=== PATIENT | female | born 1935 | race Caucasian/White ===

== ENCOUNTER → 2017-01-07 | Outpatient (CLI) | payer MEDICARE, BC ==
[2014-06-08 21:23] VITALS: BP 172/94
[~2017-01-07] MED LIST: ANTI ITCH TP; ASPERCREME10% TP; CIPRO 250MG TA250 MG PO; DIFLUCAN100 MG PO; MORPHINE SULFAT15 M2 PO; NORCO 325 MG-51 TA1 PO; ONDANSETRON8 M1 PO
[2017-01-07 08:37] LABS: BASO # 0.1 (0.02-0.10); EOS # 0.2 (0.04-0.40); EOS % 3.9 % (1.0-5.0); HEMATOCRIT 34.5 % (37.0-47.0); HEMOGLOBIN 11.5 g/dL (12.5-16.0); LYMPH# 1.7 (1.50-4.00); MEAN CELL VOLUME 89 fl (78-100); MEAN CORPUSCULAR HEMOGLOBIN 30 pg (27-31); MEAN CORPUSCULAR HGB CONC 33 g/dL (33-37); MEAN PLATELET VOLUME 9.7 fl (7.4-10.4); MONO # 0.7 (0.20-0.80); NEU # 3.2 (1.40-6.50); PLATELET COUNT 285 K/mm3 (130-400); RED BLOOD COUNT 3.86 M/mm3 (4.10-5.30); RED CELL DISTRIBUTION WIDTH 14.2 % (11.5-14.5); WHITE BLOOD COUNT 5.9 K/mm3 (4.8-10.8)
[2017-01-07 08:45] LABS: ALBUMIN 4.1 g/dL (3.5-5.0); BUN/CREATININE RATIO 25.8 (6.0-26.0); CALCIUM 9.8 mg/dL (8.4-10.2); POTASSIUM 4.2 mmol/L (3.6-5.0); TOTAL BILIRUBIN 0.5 mg/dL (0.2-1.3); TOTAL PROTEIN 7.3 g/dL (6.3-8.2)
== END ==
LOC: LAB 08:09
PROVIDERS: Nurse Practitioner Family
DX: I10 Essential (primary) hypertension (principal); R01.1 Cardiac murmur, unspecified; I35.1 Nonrheumatic aortic (valve) insufficiency; E78.2 Mixed hyperlipidemia; M81.0 Age-related osteoporosis without current pathological fracture; G30.9 Alzheimer's disease, unspecified

== ENCOUNTER → 2018-06-24 | Outpatient (CLI) | payer MEDICARE, BC ==
[2014-06-08 21:23] VITALS: BP 172/94
[2018-06-24 14:48] LABS: EOS # 0.1 (0.04-0.40); EOS % 0.9 % (1.0-5.0); LYMPH# 1.4 (1.50-4.00); MEAN CELL VOLUME 89 fl (78-100); MEAN CORPUSCULAR HEMOGLOBIN 29 pg (27-31); MEAN CORPUSCULAR HGB CONC 32 g/dL (33-37); MEAN PLATELET VOLUME 10.2 fl (7.4-10.4); MONO # 0.7 (0.20-0.80); NEU # 4.3 (1.40-6.50); PLATELET COUNT 318 K/mm3 (130-400); RED BLOOD COUNT 4.15 M/mm3 (4.10-5.30); RED CELL DISTRIBUTION WIDTH 14.5 % (11.5-14.5); WHITE BLOOD COUNT 6.5 K/mm3 (4.8-10.8)
[2018-06-24 14:54] LABS: ALBUMIN 4.6 g/dL (3.5-5.0); CALCIUM 9.5 mg/dL (8.4-10.2); POTASSIUM 4.1 mmol/L (3.6-5.0); TOTAL BILIRUBIN 0.4 mg/dL (0.2-1.3); TOTAL PROTEIN 7.9 g/dL (6.3-8.2)
== END ==
LOC: LAB 14:07
PROVIDERS: Physician Assistant
DX: J30.9 Allergic rhinitis, unspecified (principal); I10 Essential (primary) hypertension; R41.89 Other symptoms and signs involving cognitive functions and awareness; R41.3 Other amnesia; E78.5 Hyperlipidemia, unspecified; M81.0 Age-related osteoporosis without current pathological fracture; F32.9 Major depressive disorder, single episode, unspecified

== ENCOUNTER 2020-03-23 16:31 | Emergency (ER) | payer MEDICARE, BC ==
[2020-03-23] MEDS ORDERED: LOVASTATIN20 M1 PO (16:53)
[2020-03-23] MEDS ORDERED: ASPIRIN E.C. 8181 MG PO (16:53)
[2020-03-23] MEDS ORDERED: ARICEPT10 M1 PO (16:53)
[2020-03-23] MEDS ORDERED: CHILDREN'S ZYRT10 M1 PO (16:54)
[2020-03-23] MEDS ORDERED: NORVASC 10MG10 MG PO (16:54)
[2020-03-23 17:26] LABS: EOS % 0.4 % (1.0-5.0); HEMATOCRIT 34.5 % (37.0-47.0); LYMPH# 1.2 (1.50-4.00); MEAN CELL VOLUME 89 fl (78-100); MEAN CORPUSCULAR HEMOGLOBIN 28 pg (27-31); MEAN CORPUSCULAR HGB CONC 32 g/dL (33-37); MEAN PLATELET VOLUME 10.1 fl (7.4-10.4); MONO # 0.4 (0.20-0.80); NEU # 6.6 (1.40-6.50); PLATELET COUNT 310 K/mm3 (130-400); RED BLOOD COUNT 3.88 M/mm3 (4.10-5.30); RED CELL DISTRIBUTION WIDTH 13.5 % (11.5-14.5); WHITE BLOOD COUNT 8.3 K/mm3 (4.8-10.8)
[2020-03-23 17:35] LABS: ALBUMIN 4.3 g/dL (3.4-4.8)
[2020-03-23 17:36] LABS: POTASSIUM 4.4 mmol/L (3.5-5.1)
[2020-03-23 17:37] LABS: CALCIUM 9.1 mg/dL (8.3-10.5)
[2020-03-23 17:38] LABS: TOTAL PROTEIN 7.4 g/dL (6.2-8.1)
[2020-03-23 17:40] LABS: TOTAL BILIRUBIN 0.3 mg/dL (0.2-1.2)
[2020-03-23 18:59] LABS: URINE APPEARANCE CLEAR; URINE BILIRUBIN NEGATIVE (NEGATIVE); URINE BLOOD TRACE (NEGATIVE); URINE COLOR YELLOW; URINE GLUCOSE NEGATIVE (NEGATIVE); URINE KETONE NEGATIVE (NEGATIVE); URINE LEUKOCYTE ESTERASE NEGATIVE (NEGATIVE); URINE MUCUS PRESENT (NOT PRESENT); URINE NITRATE NEGATIVE (NEGATIVE); URINE PROTEIN(semi-quant) TRACE mg/dL (NEGATIVE); URINE UROBILINOGEN NORMAL (NORMAL); URINE WBC 0-1 /hpf (0-3)
[2020-03-23] MEDS ORDERED: MECLIZINE PO (19:18)
[2020-03-23] MEDS ORDERED: ZOFRAN ODT4 MG PO (19:18)
[2020-03-23 19:37] VITALS: BP 153/67
== END 2020-03-23 19:37 | disposition home or self-care (01) ==
LOC: ED 16:31
PROVIDERS: Family Medicine
DX: R42 Dizziness and giddiness (principal); R11.2 Nausea with vomiting, unspecified; I10 Essential (primary) hypertension; E78.5 Hyperlipidemia, unspecified; Z79.82 Long term (current) use of aspirin

== ENCOUNTER → 2020-08-15 | Outpatient (CLI) | payer MEDICARE, BC ==
[~2020-08-15] MED LIST changes: +ARICEPT10 M1 PO; +ASPIRIN E.C. 8181 MG PO; +CHILDREN'S ZYRT10 M1 PO; +LOVASTATIN20 M1 PO; +MECLIZINE PO; +NORVASC 10MG10 MG PO; +ZOFRAN ODT4 MG PO
[2020-08-15 09:04] LABS: BASO # 0.09 (0.02-0.10); EOS # 0.27 (0.04-0.40); EOS % 4.7 % (1.0-5.0); HEMATOCRIT 33.2 % (37.0-47.0); HEMOGLOBIN 10.9 g/dL (12.5-16.0); LYMPH# 1.36 (1.50-4.00); MEAN CELL VOLUME 87 fl (78-100); MEAN CORPUSCULAR HEMOGLOBIN 29 pg (27-31); MEAN CORPUSCULAR HGB CONC 33 g/dL (33-37); MEAN PLATELET VOLUME 9.8 fl (7.4-10.4); MONO # 0.55 (0.20-0.80); NEU # 3.49 (1.40-6.50); PLATELET COUNT 293 K/mm3 (130-400); RED BLOOD COUNT 3.81 M/mm3 (4.10-5.30); RED CELL DISTRIBUTION WIDTH 13.6 % (11.5-14.5); WHITE BLOOD COUNT 5.8 K/mm3 (4.8-10.8)
[2020-08-15 09:11] LABS: ALBUMIN 4.1 g/dL (3.4-4.8); POTASSIUM 4.8 mmol/L (3.5-5.1)
[2020-08-15 09:15] LABS: TOTAL BILIRUBIN 0.4 mg/dL (0.2-1.2)
== END ==
LOC: LAB 08:40
PROVIDERS: Physician Assistant
DX: Z00.00 Encounter for general adult medical examination without abnormal findings (principal); Z13.29 Encounter for screening for other suspected endocrine disorder; E78.5 Hyperlipidemia, unspecified

== ENCOUNTER → 2021-10-22 | Outpatient (CLI) | payer MEDICARE, BC ==
[2021-10-22 12:25] LABS: BASO # 0.09 K/mm3 (0.02-0.10); EOS # 0.19 K/mm3 (0.04-0.40); EOS % 2.6 % (1.0-5.0); HEMATOCRIT 33.7 % (37.0-47.0); HEMOGLOBIN 10.8 g/dL (12.5-16.0); LYMPH# 1.24 K/mm3 (1.50-4.00); MEAN CELL VOLUME 90 fl (78-100); MEAN CORPUSCULAR HEMOGLOBIN 29 pg (27-31); MEAN CORPUSCULAR HGB CONC 32 g/dL (33-37); MEAN PLATELET VOLUME 9.7 fl (7.4-10.4); MONO # 0.74 K/mm3 (0.20-0.80); NEU # 4.97 K/mm3 (1.40-6.50); PLATELET COUNT 304 K/mm3 (130-400); RED BLOOD COUNT 3.76 M/mm3 (4.10-5.30); RED CELL DISTRIBUTION WIDTH 14.4 % (11.5-14.5); WHITE BLOOD COUNT 7.2 K/mm3 (4.8-10.8)
[2021-10-22 12:34] LABS: ALBUMIN 4.2 g/dL (3.4-4.8); POTASSIUM 4.9 mmol/L (3.5-5.1)
[2021-10-22 12:35] LABS: CALCIUM 9.3 mg/dL (8.3-10.5)
[2021-10-22 12:37] LABS: TOTAL PROTEIN 7.1 g/dL (6.2-8.1)
[2021-10-22 12:38] LABS: TOTAL BILIRUBIN 0.4 mg/dL (0.2-1.2)
== END ==
LOC: LAB 12:09
PROVIDERS: Physician Assistant
DX: Z23 Encounter for immunization (principal); Z00.00 Encounter for general adult medical examination without abnormal findings; Z13.29 Encounter for screening for other suspected endocrine disorder; I10 Essential (primary) hypertension; R60.0 Localized edema; E78.5 Hyperlipidemia, unspecified; G30.9 Alzheimer's disease, unspecified; R41.89 Other symptoms and signs involving cognitive functions and awareness; N28.9 Disorder of kidney and ureter, unspecified; I35.1 Nonrheumatic aortic (valve) insufficiency; I27.20 Pulmonary hypertension, unspecified; I70.1 Atherosclerosis of renal artery

== ENCOUNTER → 2022-02-24 | Outpatient (CLI) | payer MEDICARE, BC | LOC: MAMMO 09:40 | DX: Z12.31 Encounter for screening mammogram for malignant neoplasm of breast (principal) ==

== ENCOUNTER → 2022-06-23 | Outpatient (CLI) | payer MEDICARE, BC ==
[2022-06-23 19:20] LABS: URINE WBC 0 /hpf (0-3)
[2022-06-23 19:30] LABS: URINE APPEARANCE CLEAR; URINE BILIRUBIN NEGATIVE (NEGATIVE); URINE BLOOD NEGATIVE (NEGATIVE); URINE COLOR YELLOW; URINE GLUCOSE NEGATIVE (NEGATIVE); URINE KETONE NEGATIVE (NEGATIVE); URINE LEUKOCYTE ESTERASE NEGATIVE (NEGATIVE); URINE MUCUS PRESENT (NOT PRESENT); URINE NITRATE NEGATIVE (NEGATIVE); URINE PROTEIN(semi-quant) 1+ (NEGATIVE); URINE UROBILINOGEN NORMAL (NORMAL)
== END ==
LOC: LAB 18:19
PROVIDERS: Nurse Practitioner Family
DX: M54.50 Low back pain, unspecified (principal)

== ENCOUNTER → 2023-07-16 | Outpatient (CLI) | payer MEDICARE, BC ==
[2023-07-16 12:10] LABS: BASO # 0.05 K/mm3 (0.02-0.10); EOS # 0.29 K/mm3 (0.04-0.40); EOS % 3.9 % (1.0-5.0); HEMATOCRIT 35.6 % (37.0-47.0); HEMOGLOBIN 11.5 g/dL (12.5-16.0); LYMPH# 1.47 K/mm3 (1.50-4.00); MEAN CELL VOLUME 91 fl (78-100); MEAN CORPUSCULAR HEMOGLOBIN 29 pg (27-31); MEAN CORPUSCULAR HGB CONC 32 g/dL (33-37); MEAN PLATELET VOLUME 9.6 fl (7.4-10.4); MONO # 0.82 K/mm3 (0.20-0.80); NEU # 4.72 K/mm3 (1.40-6.50); PLATELET COUNT 295 K/mm3 (130-400); RED BLOOD COUNT 3.93 M/mm3 (4.10-5.30); RED CELL DISTRIBUTION WIDTH 14.1 % (11.5-14.5); WHITE BLOOD COUNT 7.4 K/mm3 (4.8-10.8)
[2023-07-16 12:17] LABS: ALBUMIN 4.1 g/dL (3.4-4.8)
[2023-07-16 12:18] LABS: SODIUM 139 mmol/L (136-145)
[2023-07-16 12:20] LABS: GLUCOSE 96 mg/dL (65-105); TOTAL PROTEIN 7.1 g/dL (6.2-8.1)
[2023-07-16 12:21] LABS: CARBON DIOXIDE 20 mmol/L (23-31)
[2023-07-16 12:22] LABS: TOTAL BILIRUBIN 0.2 mg/dL (0.2-1.2)
[2023-07-16 12:25] LABS: AST-SGOT 20 U/L (5-34)
[2023-07-16 12:26] LABS: ALT/SGPT 22 U/L (0-55)
[2023-07-16 12:36] LABS: TROPONIN-I < 0.030 ng/mL (0.00-0.033)
[2023-07-16 12:40] LABS: D-DIMER 6.36 mg/L FEU (0.15-0.50)
== END ==
LOC: LAB 11:51
PROVIDERS: Physician Assistant
DX: R06.09 Other forms of dyspnea (principal)

== ENCOUNTER → 2023-11-23 | Outpatient (CLI) | payer MEDICARE, BC, MEDICAID ==
[2023-11-23 10:06] LABS: BASO # 0.04 K/mm3 (0.02-0.10); EOS # 0.24 K/mm3 (0.04-0.40); EOS % 4.3 % (1.0-5.0); HEMATOCRIT 35.4 % (37.0-47.0); HEMOGLOBIN 11.6 g/dL (12.5-16.0); LYMPH# 1.41 K/mm3 (1.50-4.00); MEAN CELL VOLUME 90 fl (78-100); MEAN CORPUSCULAR HEMOGLOBIN 29 pg (27-31); MEAN CORPUSCULAR HGB CONC 33 g/dL (33-37); MEAN PLATELET VOLUME 9.2 fl (7.4-10.4); MONO # 0.55 K/mm3 (0.20-0.80); NEU # 3.34 K/mm3 (1.40-6.50); PLATELET COUNT 242 K/mm3 (130-400); RED BLOOD COUNT 3.94 M/mm3 (4.10-5.30); RED CELL DISTRIBUTION WIDTH 13.8 % (11.5-14.5); WHITE BLOOD COUNT 5.6 K/mm3 (4.8-10.8)
[2023-11-23 10:13] LABS: ALBUMIN 4.2 g/dL (3.4-4.8)
[2023-11-23 10:14] LABS: CALCIUM 9.4 mg/dL (8.3-10.5)
[2023-11-23 10:15] LABS: TOTAL PROTEIN 7.3 g/dL (6.2-8.1)
[2023-11-23 10:17] LABS: TOTAL BILIRUBIN 0.4 mg/dL (0.2-1.2)
== END ==
LOC: LAB 09:51
PROVIDERS: Physician Assistant
DX: N28.9 Disorder of kidney and ureter, unspecified (principal); D64.9 Anemia, unspecified

== ENCOUNTER 2024-04-27 10:47 | Emergency (ER) | payer MEDICARE, BC ==
[~2024-04-27] VITALS: Ht 157.5 cm; Wt 98.6 kg
[~2024-04-27 10:47] MED LIST changes: +ESCITALOPRAM5 MG PO; +HCTZ 25MG25 MG PO; +LISINOPRIL AND1 TA1 PO; +MACROBID 100 M100 MG PO
[2024-04-27 11:53] VITALS: BP 130/83
== END 2024-04-27 12:11 | disposition home or self-care (01) ==
LOC: ED 10:47
DX: S09.90XA Unspecified injury of head, initial encounter (principal); S00.81XA Abrasion of other part of head, initial encounter; W18.30XA Fall on same level, unspecified, initial encounter; Y92.830 Public park as the place of occurrence of the external cause

== ENCOUNTER → 2024-06-13 | Outpatient (CLI) | payer MEDICARE, BC ==
[2024-06-13 14:17] LABS: BASO # 0.03 K/mm3 (0.02-0.10); EOS # 0.42 K/mm3 (0.04-0.40); EOS % 5.1 % (1.0-5.0); HEMATOCRIT 37.3 % (37.0-47.0); HEMOGLOBIN 12.2 g/dL (12.5-16.0); LYMPH# 1.71 K/mm3 (1.50-4.00); MEAN CELL VOLUME 90 fl (78-100); MEAN CORPUSCULAR HEMOGLOBIN 29 pg (27-31); MEAN CORPUSCULAR HGB CONC 33 g/dL (33-37); MEAN PLATELET VOLUME 9.5 fl (7.4-10.4); MONO # 0.83 K/mm3 (0.20-0.80); PLATELET COUNT 304 K/mm3 (130-400); RED BLOOD COUNT 4.15 M/mm3 (4.10-5.30); RED CELL DISTRIBUTION WIDTH 14.1 % (11.5-14.5); WHITE BLOOD COUNT 8.3 K/mm3 (4.8-10.8)
[2024-06-13 14:25] LABS: ALBUMIN 4.3 g/dL (3.4-4.8)
[2024-06-13 14:26] LABS: CALCIUM 9.8 mg/dL (8.3-10.5)
[2024-06-13 14:28] LABS: TOTAL PROTEIN 7.7 g/dL (6.2-8.1)
[2024-06-13 14:29] LABS: TOTAL BILIRUBIN 0.3 mg/dL (0.2-1.2)
== END ==
LOC: LAB 14:01
PROVIDERS: Physician Assistant
DX: N28.9 Disorder of kidney and ureter, unspecified (principal); D64.9 Anemia, unspecified